=== PATIENT | male | born 1960 | race Caucasian/White ===

== ENCOUNTER 2023-04-14 16:07 | Emergency (ER) | payer OTHER ==
[~2023-04-14] VITALS: Ht 180.3 cm; Wt 87.1 kg
--- NOTE | 2023-04-14 16:20 | NUR ---
RECEIVED PT 62 YRS MALE FROM HOME C/O CHEST PAIN ON AND OFF FOR 2 DAYS RESPIRITION SPONT
--- NOTE | 2023-04-14 16:40 | NUR ---
INSERTED ANGOCATHETER G 20 ON LT ARM BLOOD DROW AND SENT TO LAB
[2023-04-14] MEDS ORDERED: FAMOTIDINE/PF INJ 20 MG/2 ML VIAL IV ONE (16:51)
[2023-04-14] MEDS ORDERED: MORPHINE SULFATE INJ 2 MG/ML DISP.SYRIN ONE (16:51)
[2023-04-14] MEDS: MORPHINE SULFATE INJ 2 MG/ML DISP.SYRIN IV ONE (16:59)
[2023-04-14] MEDS: FAMOTIDINE/PF INJ 20 MG/2 ML VIAL IV ONE (16:59)
[2023-04-14 17:28] LABS: BASOPHILS # (AUTO) 0.1 K/uL (0.0-0.2); BASOPHILS % (AUTO) 0.4 % (0.0-2.0); EOSINOPHILS % (AUTO) 1.3 % (0.0-6.0); HEMATOCRIT 37 % (39-51); LYMPHOCYTES # (AUTO) 1.3 K/uL (0.8-4.8); LYMPHOCYTES % (AUTO) 10.5 % (20.0-44.0); MEAN CORPUSCULAR HGB CONC 33 g/dl (31.0-36.0); MEAN CORPUSCULAR VOLUME 86 fL (80-96); MONOCYTES # (AUTO) 0.9 K/uL (0.1-1.30); MONOCYTES % (AUTO) 7.4 % (2.0-12.0); NEUTROPHILS # (AUTO) 10.1 K/uL (1.8-8.9); NEUTROPHILS % (AUTO) 80.4 % (43.0-81.0); PLATELET COUNT (AUTO) 284 K/uL (150-450); RED BLOOD CELL COUNT(AUTO) 4.25 MIL/uL (4.5-6.0); WHITE BLOOD COUNT (AUTO) 12.6 K/uL (4.3-11.0)
[2023-04-14 17:55] LABS: CALCIUM, SERUM 9.2 mg/dL (8.5-10.1); CARBON DIOXIDE 26 mmol/L (21-32); CHLORIDE 94 mmol/L (98-107); CREATININE 1.1 mg/dL (0.6-1.3); GLUCOSE 236 mg/dL (74-106); POTASSIUM 4.2 mmol/L (3.5-5.1); SODIUM SERUM 129 mmol/L (136-145); UREA NITROGEN, BLOOD 20 mg/dL (7-18)
[2023-04-14 18:13] LABS: ALANINE AMINOTRANSFERASE 161 U/L (12-78); ALBUMIN 3.7 g/dL (3.4-5.0); ALKALINE PHOSPHATASE 79 U/L (46-116); ASPARTATE AMINOTRANSFERASE 48 U/L (15-37); BILIRUBIN,DIRECT 0.1 mg/dL (0.0-0.2); BILIRUBIN,TOTAL 0.3 mg/dL (0.2-1.0); LIPASE 153 U/L (73-393); TOTAL PROTEIN, SERUM 7.2 g/dL (6.4-8.2)
--- NOTE | 2023-04-14 18:53 | NUR ---
CHEST PAIN CAME AND HOMER
--- NOTE | 2023-04-14 19:23 | NUR ---
HADLEY DUNN RN
--- NOTE | 2023-04-14 20:28 | NUR ---
Patient discharged to home in stable condition. Written and verbal after care instructions given. Patient verbalizes understanding of instruction.
--- NOTE | 2023-04-14 20:28 | NUR ---
IV removed. Catheter intact and site benign. Pressure and 4x4 applied to site. No bleeding noted.
[2023-04-14 20:29] VITALS: BP 119/77; TEMP 98.6; O2SAT 96
== END 2023-04-14 20:37 | disposition home or self-care (01) ==
LOC: ER 16:10
DX: R10.13 Epigastric pain (principal); E11.9 Type 2 diabetes mellitus without complications
CPT/HCPCS: 99285; 96374; 71045; 96375; 93005; 85025; 80048; 83690; 80076; 36415; 84484; J3490; J2270